=== PATIENT | male | born 1940 | race Caucasian/White ===

== ENCOUNTER → 2017-01-04 | Outpatient (CLI) | payer MEDICARE, OTHER ==
[~2017-01-04] MED LIST: ASCO500T12 PO; BISA-49 PO; CHOL100011 PO; CLON0.2T PO; CYAN1TAB29 PO; DIAZ5TAB PO; DULO60CA7 PO; FAMO-79 PO; FENO54TA17 PO; FLAX100029 PO; FLUT1DIS3 INH; HYDR2TAB29 PO; LEVO500T33 PO; LEVO50TA PO; LOSA100T2 PO; LOSA100T6 PO; LOSA1TAB12 PO; METF500T4 PO; METH4TAB2 PO; METO25TA35 PO; MORP-52 PO; MORP15TA3 PO; MULT1CAP19 PO; NITR0.4T SL; NYST1000 PO; OMEG1CAP23 PO; OMEP40CA3 PO; OXYC-229 PO; POLY17PO5 PO; REGADENOSON 0.4 MG/5 ML SYRINGE ONE; ROPI1TAB PO; TIZA2CAP PO; TIZA4CAP2 PO; Trilipix PO; VITA100022 PO; prozosin PO
== END | disposition home or self-care (01) ==
LOC: CFH 09:01
PROVIDERS: ATTEND Internal Medicine Cardiovascular Disease
DX: I25.10 Atherosclerotic heart disease of native coronary artery without angina pectoris (principal); I10 Essential (primary) hypertension
CPT/HCPCS: 78452; 93017; A9502; J2785

== ENCOUNTER → 2020-01-28 | Outpatient (CLI) | payer MEDICARE ==
[~2020-01-28] MED LIST changes: -ASCO500T12 PO; +ASCO500T93 PO; -LEVO500T33 PO; +LEVO500T47 PO; +LOSA100T14 PO; -LOSA100T6 PO; +METF500T17 PO; -METF500T4 PO; +MORP-29 PO; -MORP15TA3 PO; -NITR0.4T SL; +NITR0.4T41 SL; -OXYC-229 PO; +OXYC-307 PO
== END | disposition home or self-care (01) ==
LOC: CFH 12:30
PROVIDERS: ATTEND Internal Medicine Cardiovascular Disease
DX: I25.10 Atherosclerotic heart disease of native coronary artery without angina pectoris (principal); I10 Essential (primary) hypertension
CPT/HCPCS: 78452; 93017; A9502; J2785